=== PATIENT | male | born 1935 | race Caucasian/White ===

== ENCOUNTER 2019-06-30 20:43 | Inpatient (IN) ==
--- NOTE | 2019-06-30 21:31 | Diag Imaging Result Doc PS360 ---
EXAM: HIP W/PELVIS BILAT 2 VIEWS HISTORY: Fall TECHNIQUE: Five views COMPARISON: None. FINDINGS: There is a right femoral neck fracture. Femoral head remains in the acetabulum. The femoral shaft is rotated and superiorly placed. No fracture to the left hip. IMPRESSION: Right femoral neck fracture. Electronically signed by Martin Jauregui 06/30/2019 9:29 PM
[2019-06-30] MEDS ORDERED: MORPHINE IV ONE (21:52)
--- NOTE | 2019-06-30 22:05 | PROVIDER DOCUMENTATION ---
HPI-General Adult - General Chief Complaint: Hip Injury Stated Complaint: POSSIBLE FRACTURED RT HIP Time Seen by Provider: 06/30/19 21:05 Source: patient, family Allergies/Adverse Reactions: Patient Allergies Allergy/AdvReac Type Severity Reaction Status Date / Time No Known Allergies Allergy Verified 06/30/19 21:47 Home Medications: Home Medication List Medication Instructions Recorded Confirmed Last Taken Type Metformin [Glucophage] 500 mg PO TID 06/30/19 06/30/19 Unknown History Metoprolol [Lopressor] 25 mg PO BID 06/30/19 06/30/19 Unknown History Olmesartan/Hydrochlorothiazide 1 tab PO DAILY 06/30/19 06/30/19 Unknown History [Olmesartan-Hctz 20-12.5 mg Tab] Simvastatin 20 mg PO DAILY 06/30/19 06/30/19 Unknown History - History of Present Illness -Gen Adult Nature of Presenting Problems: 83yo male presents with CC of fall with injury to the right hip. The pt. reports that he was playing basketball and fell on his hip. The patient denies head injury or LOC. The patient reports that he did not have chest pain or dizziness associated with his fall. Location of Pain/Injury: reports: other (hip) Severity: reports: moderate Onset/Duration: reports: this evening Timing: reports: still present Context/Activities at Onset: reports: other (fall while playing basketball) Associated Symptoms: denies: chest pain, dizziness, shortness of breath, syncope Review of Systems - Adult - REVIEW OF SYSTEMS - ADULT Constitutional: reports: no symptoms reported Eyes: reports: no symptoms reported. denies: eye pain Ears, Nose, Mouth & Throat: reports: no symptoms reported. denies: throat pain Cardiovascular: reports: no symptoms reported. denies: chest pain Respiratory: reports: no symptoms reported. denies: shortness of breath Gastrointestinal: reports: no symptoms reported. denies: abdominal pain Genitourinary: reports: no symptoms reported. denies: flank pain Musculoskeletal: reports: joint pain (right hip) Integumentary: reports: no symptoms reported Neurological: reports: no symptoms reported. denies: dizziness/vertigo, syncope Psychiatric: reports: no symptoms reported. denies: alcohol/drug dependence Endocrine: reports: no symptoms reported Hematologic/Lymphatic: reports: no symptoms reported Allergic/Immunologic: reports: no symptoms reported Past History - Adult - PAST MEDICAL HISTORY-ADULT Review of Records: reports: Old Records Reviewed Major Childhood Illnesses: reports: denies history Cardiovascular: reports: denies history Respiratory: reports: denies history Gastrointestinal: reports: denies history Obstetrical/Gynecological: reports: denies history Genitourinary: reports: denies history Musculoskeletal: reports: denies history Neurological: reports: denies history Endocrine/Immune: reports: denies history Other Conditions: reports: denies history - PRIOR SURGERIES/PROCEDURES Surgical/Procedure History: reports: none - IMMUNIZATION STATUS Childhood Immunizations: See Nurse Assessment Flu Vaccine: See Nurse Assessment - FAMILY HISTORY Family History: reviewed, not pertinent Physical Exam-General - PHYSICAL EXAM-ADULT Initial Vital Signs Reviewed: Yes - CONSTITUTIONAL General Appearance: appears well, alert, no apparent distress - EYES Eyes: negative: conjuctival exudate, scleral icterus - HEAD, EARS, NOSE, MOUTH & THROAT HENMT: normocephalic/atraumatic, moist mucous membranes, pharynx normal - NECK Neck: non-tender, supple - RESPIRATORY Respiratory: normal breath sounds, no respiratory distress - CARDIOVASCULAR Cardiovascular: no edema, tachycardia - GASTROINTESTINAL (ABDOMEN) Abdominal Exam: soft, distended. negative: tenderness - MUSCULOSKELETAL Extremity: other (tenderness of the right hip, no open wound or blood noted) Peripheral Pulses: dorsalis-pedis (R): 2+ - SKIN Integumentary: normal color, warm/dry - NEUROLOGIC Neurologic: grossly normal - PSYCHIATRIC Psych/Mental Status: normal mood/affect, normal thought content, normal thought process Progress - PLAN OF CARE/RESULTS Progress/Plan/Lab Results: Vital Signs - 8 hr 06/30/19 21:14 Temperature 98.1 F Pulse Rate 101 H Respiratory Rate 18 Blood Pressure 185/99 O2 Sat by Pulse Oximetry 98 Orders Category Date Time Status HIP W/PELVIS BILAT 2 VIEWS [RAD] Stat Exams 06/30/19 21:07 Completed Morphine Med 06/30/19 21:52 Discontinued 4 mg IV NOW ONE Result Diagrams: 06/30/19 22:22 06/30/19 22:22 - REASSESSMENT Reassessment #1 Status: other (Discussed case with the orthopedic team who recomended admission to the hospitalist group. Discussed with hospitalist group who has accepted the patient. Notified both hospitalist and ortho team that the pt is Jehovahs witness and denies any blood transfusion.) Departure - Departure Date of Disposition Decision: 06/30/19 Time of Disposition Decision: 22:54 DIAGNOSIS: Closed right hip fracture Qualifiers: Encounter type: initial encounter Qualified Code(s): S72.001A - Fracture of unspecified part of neck of right femur, initial encounter for closed fracture Disposition: ADMITTED INPATIENT 09 Certified Medical Emergency: Emergent Condition: Fair - Critical Care Note This patient required my direct & personal management of CC.: No Attestation - Physician/ DARIAN Attestation Patient care was provided by Advanced Practice Provider:: No The physician spent face to face time with patient:: Yes Advanced Practice Provider documentation review:: Supervising physician onsite and consulted in the evaluation and care of this patient. The physician did have a face to face encounter with the patient.
[2019-06-30 22:55] LABS: BASO# 0.01 X1000 (0.0-0.2); BASO% 0.1 % (0.0-0.8); EOS# 0.11 X1000 (0.0-0.7); EOS% 1.2 % (0.0-10.0); HEMATOCRIT 41.4 % (42.0-52.0); HEMOGLOBIN 13.2 g/dL (14.0-18.0); LYMPH# 1.11 X1000 (1.2-3.4); LYMPH% 11.9 % (20.5-51.1); MCH 28.1 PG (27-31); MCHC 31.9 g/dL (33-37); MCV 88.1 FL (81-99); MONO% 5.4 % (1.7-9.3); MPV 10.4 FL (7.4-10.4); NEUT# 7.59 X1000 (1.4-6.5); NEUT% 81.4 % (42.2-75.2); PLT 168 X1000 (130-400); RDW 14.3 % (11.5-14.5); WBC 9.32 X1000 (4.8-10.8)
[2019-06-30 23:06] LABS: ALB/GLOB RATIO 1.5; CALCIUM 9.2 mg/dL (8.8-10.2); CREATININE 1.3 mg/dL (0.7-1.2); POTASSIUM 4.8 mmol/L (3.5-5.1); TOTAL BILIRUBIN 0.4 mg/dL (0.20-1.00); TOTAL PROTEIN 6.6 g/dL (6.3-8.3)
[2019-07-01] MEDS ORDERED: ZOFRAN IV PRN (00:06)
--- NOTE | 2019-07-01 00:24 | HISTORY AND PHYSICAL ---
PRIMARY CARE PHYSICIAN: Dr. Ania Armenta. CHIEF COMPLAINT: Fall, right hip pain. HISTORY OF PRESENTING ILLNESS: An 83-year-old male with history of hypertension, diabetes mellitus type 2, hyperlipidemia, who presented to emergency department after he fell while playing basketball. The patient states that he landed on his right hip region, developed moderate amount of pain and subsequently had come to the emergency department. In the ED, he was evaluated, he had imaging done which did show a right femoral neck fracture. His case was discussed with Orthopedics, who recommended admission for further management. At the time of my examination, patient denied any headache, fever, chills, chest pain, shortness of breath, hemoptysis, melena, weight changes, but complained of right hip region pain. PAST MEDICAL HISTORY: Includes hypertension, diabetes mellitus type 2, hyperlipidemia. PAST SURGICAL HISTORY: Bilateral knee replacement. ALLERGIES: No known drug allergies. CURRENT MEDICATIONS: Include metformin 500 mg p.o. t.i.d., metoprolol 25 mg p.o. b.i.d., olmesartan HCT 20/12.5 one p.o. daily, simvastatin 20 mg p.o. daily. SOCIAL HISTORY: No history of smoking, alcohol or illicit drug use. FAMILY HISTORY: Positive for coronary disease in mother. REVIEW OF SYSTEMS: Fourteen point review of systems is as in HPI. Other systems negative. PHYSICAL EXAMINATION: GENERAL: Cooperative, friendly male. He is resting more comfortably now. VITAL SIGNS: Temperature 98.1 degrees, pulse 101, respiration 18, blood pressure 185/99. HEENT: Extraocular movements intact. PERRLA. NECK: No masses. CHEST: Clear to auscultation. CARDIOVASCULAR: Regular rhythm. ABDOMEN: Soft, positive bowel sounds. EXTREMITY: Right hip region tenderness. NEUROLOGIC: He is awake, alert, oriented x3. GENITOURINARY: No bladder distention. SKIN: Warm. LABORATORIES AND STUDIES: WBC 9.32, hemoglobin 13.2, hematocrit 41.4, platelets 168,000. Sodium 138, potassium 4.8, chloride 100, CO2 is 26, BUN is 22, creatinine is 1.3. Glucose 210. Hip and pelvic x-ray shows a right femoral neck fracture. ASSESSMENT: An 83-year-old male with a history of hypertension, diabetes mellitus type 2 and hyperlipidemia, who was playing basketball and somehow he fell. He developed moderate amount of pain in his right hip region. He was brought to the emergency department. He had imaging done which did show a right femoral neck fracture. Subsequently, he will require admission for further management. ASSESSMENT: 1. Status post mechanical fall. 2. Right femoral neck fracture. 3. Hypertension. 4. Diabetes mellitus type 2. 5. Hyperlipidemia. PLAN: 1. We will admit patient to medical floor with telemetry. 2. We will keep patient NPO, give medical pain control and gentle hydration. 3. We will consult Orthopedics. 4. Monitor blood pressure closely. 5. Monitor blood glucose. Put patient on sliding scale insulin regimen. 6. We will put patient on DVT prophylaxis after surgery. 7. We will continue to follow and reassess, make further recommendation based on patient's clinical course. cc: MD Ania Jackson MD
[2019-07-01] MEDS: MORPHINE IV PRN ×2 (03:43→10:31)
[2019-07-01] MEDS: LOPRESSOR PO SCH ×3 (04:20→22:07)
[2019-07-01] MEDS: TYLENOL PO PRN ×2 (04:21→10:32)
--- NOTE | 2019-07-01 04:41 | EKG Report ---
Test Performed on : 07/01/2019 03:01:10 AM Test Reason : CP Blood Pressure : / mmHG Vent. Rate : 129 BPM Atrial Rate : 138 BPM P-R Int : 000 ms QRS Dur : 118 ms QT Int : 334 ms P-R-T Axes : 000 -29 073 degrees QTc Int : 489 ms Atrial fibrillation. with rapid ventricular response. Nonspecific intraventricular conduction delay Abnormal ECG No previous ECGs available Confirmed by Love Hernandez MD ([id number]) on 07/03/2019 7:39:39 AM
[2019-07-01] MEDS: HUMULIN R SUBQ SCH ×4 (07:45→21:50)
--- NOTE | 2019-07-01 07:47 | Diag Imaging Result Doc PS360 ---
EXAM: CHEST-1 VIEW 06/30/2019 HISTORY: Fall with fracture TECHNIQUE: AP portable at 1018 COMMENT: The inspiration is less optimal than on 05/02/2019. Otherwise are has been no significant change. IMPRESSION: Poor inspiration. Electronically signed by Johnny Kamara 07/01/2019 7:44 AM
[2019-07-01 08:07] LABS: EOS# 0.06 X1000 (0.0-0.7); EOS% 0.5 % (0.0-10.0); HEMATOCRIT 38.9 % (42.0-52.0); HEMOGLOBIN 12.3 g/dL (14.0-18.0); IMM GRAN# 0.02 X1000 (0.0-0.04); IMM GRAN% 0.2 % (0.0-0.5); LYMPH# 0.73 X1000 (1.2-3.4); LYMPH% 6.3 % (20.5-51.1); MCH 27.9 PG (27-31); MCHC 31.6 g/dL (33-37); MCV 88.2 FL (81-99); MONO# 0.66 X1000 (0.11-0.59); MONO% 5.7 % (1.7-9.3); MPV 10.7 FL (7.4-10.4); NEUT# 10.13 X1000 (1.4-6.5); NEUT% 87.3 % (42.2-75.2); PLT 152 X1000 (130-400); RBC 4.41 XMIL (4.7-6.1); RDW 14.4 % (11.5-14.5)
[2019-07-01 08:28] LABS: CALCIUM 8.6 mg/dL (8.8-10.2); CREATININE 1.3 mg/dL (0.7-1.2); POTASSIUM 4.6 mmol/L (3.5-5.1)
[2019-07-01 09:26] LABS: BANDS 10 % (0-1); LYMPHS 8 % (21-51); MONO 2 % (1-9); SEGS 80 % (42-75)
--- NOTE | 2019-07-01 10:31 | ORTHOPAEDICS CONSULTATION ---
DATE: 07/01/2019 HISTORY OF PRESENT ILLNESS: Mr. Solis is seen status post a fall with a right hip fracture. He is admitted by the hospitalist. He reports he was playing basketball when he slipped, tripped, and fell, landing on the right hip. He was unable to ambulate. He was admitted by the hospitalist, and found to have a right hip fracture. Presently, he complains of pain and tenderness over the right hip only. PAST MEDICAL HISTORY: Significant for hypertension, diabetes, and hyperlipidemia. PAST SURGICAL HISTORY: Status post bilateral knee replacement in the past. ALLERGIES: He has no known allergies. MEDICATIONS: Regular medicines include metformin, metoprolol, olmesartan, and simvastatin. SOCIAL HISTORY: He does not smoke or drink. He is a community ambulator. Resides in the area. He has a present. REVIEW OF SYSTEMS: Unremarkable for any chest pain, shortness of breath, syncopal spells, upper extremity pain, neck or back pain, or right lower extremity pain. Also negative for any left lower extremity pain. PHYSICAL EXAMINATION: Examination reveals tenderness over the right hip on passive motion. He is nontender about the right knee and ankle. Left lower extremity and both upper extremities are atraumatic and motor and sensory intact. He is nontender over the cervical, thoracic, lumbar spine. IMAGING: X-rays reviewed show a displaced right femoral neck fracture. ASSESSMENT: Displaced right femoral neck fracture. PLAN: The patient will be admitted for medical clearance. He has elevated blood sugar, as well as an elevated temperature and white count currently. Pending medical clearance today, will consider either hemiarthroplasty of the hip or total hip replacement. This will likely be tomorrow. I have discussed this with the family. We have discussed the risks of surgery, such as bleeding, infection, damage to tendon, nerve, or blood vessel, leg length discrepancy, failure of the implant, and other imponderables, and they are willing to proceed. cc: Tk Rodriguez MD
[2019-07-01] MEDS ORDERED: NORCO-5 PO PRN (14:40)
[2019-07-01] MEDS ORDERED: MORPHINE IV PRN (14:41)
[2019-07-01] MEDS ORDERED: LR 2,000 ML IV SCH (14:45)
[2019-07-01] MEDS ORDERED: LANTUS INSULIN SUBQ ONE (15:00)
[2019-07-01] MEDS ORDERED: MILK OF MAGNESIA PO ONE (15:45)
[2019-07-01] MEDS ORDERED: LOVENOX SUBQ SCH (16:00)
--- NOTE | 2019-07-01 17:28 | EKG Report ---
Test Performed on : 07/01/2019 4:42:40 PM Test Reason : Follow up heart rhythm Blood Pressure : / mmHG Vent. Rate : 092 BPM Atrial Rate : 092 BPM P-R Int : 186 ms QRS Dur : 122 ms QT Int : 364 ms P-R-T Axes : 078 -22 058 degrees QTc Int : 450 ms Sinus rhythm. with marked sinus arrhythmia. Nonspecific intraventricular conduction delay Borderline ECG When compared with ECG of 01-JUL-2019 03:01, (Unconfirmed) Sinus rhythm. has replaced Atrial fibrillation. Confirmed by Love Hernandez MD ([id number]) on 07/03/2019 7:40:17 AM
--- NOTE | 2019-07-01 17:28 | PROGRESS NOTE ---
DATE: 07/01/2019 INTERVAL HISTORY: No acute events overnight. He did develop fever of 102.5 and had leukocytosis of 11,000. His pulse had been increasing from 101 to 121. He was saturating 93% on room air. He had hyperglycemia as well. SUBJECTIVE: Mr. Solis is feeling good. Denies any chest pain, shortness of breath or cough. He denies any nausea, vomiting, abdominal pain. He denies any burning while micturition. VITALS: Temperature currently 98.7 degrees, pulse 101, respiratory 20, blood pressure 137/77, he is saturating 93% on room air. PHYSICAL EXAMINATION: He is not in acute distress. Oral cavity is moist. Air entry bilaterally equal. No wheeze or rhonchi, mild crackles infrascapular region. S1, S2 normal irregularly irregular. No murmur, rub, or gallop. Abdomen is soft, nontender. His right lower extremity is externally rotated. He is not in excruciating pain. He is able to wiggle his toes and perform flexion-extension of the feet. He is alert and oriented x3. His is at bedside. LABS: Suggestive of WBC of 11.6, hemoglobin of 12.3, platelet of 152,000. His BUN is 25, creatinine 1.3. He does have hyperglycemia with glucose of 361. Microbiology influenza screen was negative. Blood cultures are in lab. No new imaging. Chest x-ray previously had poor inspiration. ASSESSMENT AND PLAN: 1. Status post mechanical fall leading to right-sided femoral neck fracture. Continue intravenous morphine and oral [place] as needed for pain control. Considering patient is Jehovah's Witnesses I will avoid preoperative anticoagulation for deep venous thrombosis prophylaxis though I will consider starting postoperative DVT prophylaxis once cleared by orthopedic team. His revised cardiac risk index for preoperative risk is only 1. I will monitor him postoperatively. I will also order proBNP. There is no further preoperative workup needed before proceeding with right-sided hip joint surgery pending sepsis workup. 2. Fever and tachycardia and leukocytosis. Sepsis Needs to be ruled out. His Chest Xray did not have pneumonia. I will order urinalysis and based on that I will consider starting him on intravenous antibiotics. Blood culture and urine culture have been ordered. 3. Suspected Atrial fibrillation with rapid ventricular response. He denies known history of atrial fibrillation. His initial EKG could have normal sinus rhythm with premature atrial contraction. I will repeat an EKG now. Based on that I will consider starting him on rate control medication, for now I will keep him on his home metoprolol. 4. History of insulin-dependent diabetes mellitus with hyperglycemia. Start patient on long- acting insulin with sliding scale insulin. He was taking baby aspirin at home which I will continue him on. 5. Constipation. I will give him stool softeners. DISPOSITION: Continue monitor patient on the floor. Plan of care discussed with the patient and his questions have been answered. cc: Ivan Summers MD MTDD
[2019-07-01] MEDS ORDERED: PREVNAR 13 IM ONE (18:04)
[2019-07-01 18:08] LABS: URINE SOURCE CATH
[2019-07-01 18:10] LABS: BILIRUBIN URINE NEGATIVE (NEGATIVE); BLOOD URINE NEGATIVE (NEGATIVE); COLOR YELLOW; GLUCOSE URINE 100 mg/dL (NEGATIVE); KETONE URINE TRACE mg/dL (NEGATIVE); LEUKOCYTES URINE NEGATIVE (NEGATIVE); NITRITE URINE NEGATIVE (NEGATIVE); PROTEIN URINE 30 mg/dL (NEGATIVE); SP GRAVITY URINE 1.025; TURBIDITY URINE CLEAR (CLEAR); UROBILINOGEN URINE NORMAL (NORMAL)
[2019-07-01 18:11] LABS: UR EPITHELIAL CELLS <10 /HPF (<10); URINE BACTERIA NEGATIVE /HPF; URINE RBC <10 /HPF (<10); URINE WBC <10 /HPF (<10)
[2019-07-02] MEDS: HUMULIN R SUBQ SCH ×4 (07:00→20:55)
--- NOTE | 2019-07-02 07:12 | EKG Report ---
Test Performed on : 07/02/2019 06:42:18 AM Test Reason : Follow up Heart rhythm Blood Pressure : / mmHG Vent. Rate : 105 BPM Atrial Rate : 105 BPM P-R Int : 184 ms QRS Dur : 122 ms QT Int : 348 ms P-R-T Axes : 057 -28 048 degrees QTc Int : 459 ms Sinus tachycardia. with occasional premature ventricular complexes. Nonspecific intraventricular conduction delay Borderline ECG When compared with ECG of 01-JUL-2019 16:42, (Unconfirmed) premature ventricular complexes. are now present Confirmed by Love Hernandez MD ([id number]) on 07/03/2019 7:40:34 AM
--- NOTE | 2019-07-02 07:20 | ORTHOPAEDICS PROGRESS NOTE ---
DATE: 07/02/2019 Mr. Solis is seen for his hip fracture. He currently is better in terms of his blood glucose. He did have an elevated temperature, with an elevated white count yesterday of 11.6. He is under a rule out sepsis protocol currently with pending blood cultures. So far, these are negative. We have discussed postponing the hip replacement until tomorrow, until there is no evidence of infection. I would not proceed with the surgery today while he is under rule out infectious protocol. If he is afebrile for 24 hours and the white count is normal, we will plan on proceeding with a total hip replacement tomorrow. Risks and benefits were discussed, including risk of anesthesia, infection, damage to tendon, nerve, or blood vessel, blood clots, or other imponderables. Will place him in pneumatic stockings to prevent blood clots today, pending surgery tomorrow. cc: Tk Rodriguez MD
[2019-07-02 07:53] LABS: HEMATOCRIT 38.5 % (42.0-52.0); HEMOGLOBIN 12.1 g/dL (14.0-18.0); MCH 27.7 PG (27-31); MCHC 31.4 g/dL (33-37); MCV 88.1 FL (81-99); MPV 10.3 FL (7.4-10.4); NEUT% 74.6 % (42.2-75.2); PLT 114 X1000 (130-400); RBC 4.37 XMIL (4.7-6.1); RDW 14.5 % (11.5-14.5); WBC 7.82 X1000 (4.8-10.8)
[2019-07-02 07:54] LABS: BASO# 0.01 X1000 (0.0-0.2); BASO% 0.1 % (0.0-0.8); EOS# 0.35 X1000 (0.0-0.7); EOS% 4.5 % (0.0-10.0); LYMPH# 1.11 X1000 (1.2-3.4); LYMPH% 14.2 % (20.5-51.1); MONO# 0.52 X1000 (0.11-0.59); MONO% 6.6 % (1.7-9.3); NEUT# 5.83 X1000 (1.4-6.5)
[2019-07-02] MEDS: MORPHINE IV PRN ×3 (08:10→23:15)
[2019-07-02] MEDS: ZOCOR PO SCH (08:14)
[2019-07-02] MEDS: LOPRESSOR PO SCH ×2 (08:14→20:56)
[2019-07-02 08:35] LABS: HEMOGLOBIN A1C 7.6 % (4.8-6.0)
[2019-07-02 08:39] LABS: CALCIUM 8.3 mg/dL (8.8-10.2); CREATININE 1.3 mg/dL (0.7-1.2)
--- NOTE | 2019-07-02 12:16 | PROGRESS NOTE ---
DATE: 07/02/2019 INTERVAL HISTORY: No acute events overnight. The patient has not had any more fever episodes. SUBJECTIVE: Mr. Solis is denying any chest pain, shortness of breath, or cough. He denies any nausea, vomiting, abdominal pain. He is denying any burning while passing urine. Family is at bedside. OBJECTIVE: Vital Signs: Temperature 98.7 degrees, pulse 70, respiratory rate 16, blood pressure 146/75. He is saturating 95% on room air. General: On physical examination, obese, not in acute distress. HEENT: Oral cavity is moist. Lungs: Air entry bilaterally equal. No wheeze, rhonchi, or crackles. Cardiovascular: S1 and S2 normal. Irregularly irregular. No murmur, rub, or gallop. Abdomen: Obese, soft, nontender. Extremities: No lower extremity edema. He is able to wiggle both of his toes. Neurologic: He is alert and oriented x3. LABORATORY DATA: Suggestive of WBC of 7000, hemoglobin 12.1, platelet 114,000. He does have BUN of 24, creatinine of 1.3, and I discussed with the family about following up outpatient for workup of chronic kidney dysfunction and better diabetes management. MICROBIOLOGY: Blood cultures are in lab, so far no growth. ASSESSMENT AND PLAN: 1. Status post mechanical fall leading to right femoral neck fracture. Continue intravenous morphine and [place] with increased frequency for pain. The patient is a Confucianism and would like to avoid all the blood products. He would need deep vein thrombosis prophylaxis once cleared by orthopedic team. His revised cardiac risk index (RCRI) for preoperative risk assessment is 1. Considering elevated proBNP, he would need postsurgery telemetry monitoring. 2. Fever, tachycardia, and leukocytosis with presumed sepsis. His chest x-ray was clear. Urinalysis was unremarkable. Blood culture has not shown any growth so far. His sepsis has almost been ruled out until the blood culture grows anything. He has not had any more of these episodes of fever and his WBC count has become normal. I will avoid intravenous antibiotics at the moment. 3. Irregularly irregular heartbeat. Though the initial EKG suggested atrial fibrillation, it looks more like sinus arrhythmia with premature atrial contraction. Repeat EKG. Currently his heart rate is within acceptable range. I will continue his home metoprolol for essential hypertension. 4. History of [id number] diabetes mellitus with hyperglycemia. Continue glargine with sliding scale insulin, as well as home aspirin. 5. Constipation. He has not had any bowel movement. I will keep him on bisacodyl suppositories. DISPOSITION: The patient is awaiting orthopedic surgery, likely on 07/03/2019. Plan of care was discussed with the patient. All of his questions have been answered. cc: Ivan Summers MD
[2019-07-02] MEDS: NORCO-5 PO PRN (12:45)
[2019-07-02] MEDS: DULCOLAX PR SCH ×2 (12:51→20:59)
[2019-07-02] MEDS: TYLENOL PO PRN (16:28)
--- NOTE | 2019-07-02 16:57 | ECHO REPORT ---
ORDER DATE: 07/01/2019 INTERPRETING PHYSICIAN: Dr. Clint Cortés. A 2D echocardiogram. Technically suboptimal study. Very poor acoustic window. ECHOCARDIOGRAPHIC MEASUREMENTS: 1. Interventricular septum: 0.8 cm. 2. Left ventricular posterior wall: 0.8 cm. 3. Diastolic diameter: 3.7 cm. 4. Left atrium could not be well measured. SUMMARY OF THE 2-DIMENSIONAL IMAGIN. Aortic valve leaflets are sclerosed, trileaflet. 2. Pulmonic valve not well visualized. 3. Tricuspid valve was normal. 4. Peak velocity across the tricuspid valve was 2.7 meters per second. 5. Pulmonary artery systolic pressure of 40 mmHg. 6. There is mild tricuspid regurgitation. 7. Peak velocity across the aortic valve was less than 2 meters per second. 8. Cannot comment further on the aortic valve as it was a technically suboptimal study. 9. Optison was used to evaluate left ventricular systolic function. 10. Atrial fibrillation was noted. 11. Normal left ventricular cavity size. 12. Concentric left ventricular hypertrophy. 13. Estimated ejection fraction of 65%. 14. There is no pericardial effusion. cc: MD Ivan Stephens MD
[2019-07-02] MEDS: LANTUS INSULIN SUBQ SCH (20:56)
[2019-07-03] MEDS: HUMULIN R SUBQ SCH ×4 (07:21→22:30)
--- NOTE | 2019-07-03 07:39 | EKG Report ---
Test Performed on : 07/03/2019 07:24:45 AM Test Reason : afib Blood Pressure : / mmHG Vent. Rate : 104 BPM Atrial Rate : 104 BPM P-R Int : 180 ms QRS Dur : 124 ms QT Int : 360 ms P-R-T Axes : 082 -22 054 degrees QTc Int : 473 ms Sinus tachycardia. with premature atrial complexes. Nonspecific intraventricular conduction delay Borderline ECG When compared with ECG of 02-JUL-2019 06:42, (Unconfirmed) premature ventricular complexes. are no longer present premature atrial complexes. are now present Confirmed by Love Hernandez MD ([id number]) on 07/04/2019 1:00:24 PM
[2019-07-03 08:01] LABS: BASO# 0.01 X1000 (0.0-0.2); BASO% 0.1 % (0.0-0.8); EOS# 0.12 X1000 (0.0-0.7); EOS% 1.5 % (0.0-10.0); HEMATOCRIT 37.2 % (42.0-52.0); HEMOGLOBIN 11.9 g/dL (14.0-18.0); LYMPH# 1.03 X1000 (1.2-3.4); LYMPH% 12.6 % (20.5-51.1); MCH 28.1 PG (27-31); MCV 87.9 FL (81-99); MONO% 8.5 % (1.7-9.3); MPV 10.7 FL (7.4-10.4); NEUT# 6.34 X1000 (1.4-6.5); NEUT% 77.3 % (42.2-75.2); PLT 113 X1000 (130-400); RBC 4.23 XMIL (4.7-6.1); RDW 14.1 % (11.5-14.5)
[2019-07-03] MEDS: DULCOLAX PR SCH (08:16)
[2019-07-03] MEDS: ZOCOR PO SCH (08:16)
[2019-07-03] MEDS ORDERED: DIPRIVAN 1% ONE (08:16)
[2019-07-03] MEDS ORDERED: EPHEDRINE ONE (08:17)
[2019-07-03] MEDS ORDERED: FENTANYL ONE (08:17)
[2019-07-03] MEDS ORDERED: VERSED ONE (08:17)
[2019-07-03] MEDS ORDERED: SODIUM CHLORIDE 0.9% 10 ML ONE ×2 (08:17→08:22)
[2019-07-03] MEDS: LOPRESSOR PO SCH ×2 (08:21→20:22)
[2019-07-03 08:38] LABS: CALCIUM 8.6 mg/dL (8.8-10.2); CREATININE 1.2 mg/dL (0.7-1.2)
[2019-07-03] MEDS ORDERED: MARCAINE 0.25% PF ONE (08:46)
[2019-07-03] MEDS ORDERED: DURAMORPH ONE (08:46)
[2019-07-03] MEDS ORDERED: SODIUM CHLORIDE 0.9% ONE (08:46)
[2019-07-03] MEDS ORDERED: TORADOL ONE (08:46)
[2019-07-03] MEDS ORDERED: CYKLOKAPRON 1,000 MG/NS 1,000 MG/100 ML IVPB ONE (08:46)
[2019-07-03] MEDS ORDERED: EXPAREL 1.3% ONE (08:47)
[2019-07-03] MEDS ORDERED: NEOSPORIN G.U. IRRIGANT ONE (08:47)
[2019-07-03] MEDS ORDERED: KEFZOL 1 GM/D5W 2 GM/100 ML IVPB ONE (08:56)
--- NOTE | 2019-07-03 09:49 | ORTHOPAEDICS PROGRESS NOTE ---
DATE: 07/03/2019 SUBJECTIVE: Mr. Solis is ready for surgery today. OBJECTIVE: His white count is normal. There have been no further temperature spikes. Blood cultures show no evidence of sepsis after 48 hours. PLAN: I have discussed that I do believe it is safe to proceed with surgery, as safe as possible. We will plan on proceeding with a right total hip replacement today. cc: Tk Rodriguez MD
[2019-07-03 10:47] LABS: URINE SOURCE CATH
[2019-07-03 11:11] LABS: BILIRUBIN URINE NEGATIVE (NEGATIVE); BLOOD URINE TRACE (NEGATIVE); COLOR YELLOW; GLUCOSE URINE 70 mg/dL (NEGATIVE); KETONE URINE NEGATIVE (NEGATIVE); LEUKOCYTES URINE SMALL (NEGATIVE); NITRITE URINE NEGATIVE (NEGATIVE); PH URINE 7.5; PROTEIN URINE 30 mg/dL (NEGATIVE); SP GRAVITY URINE 1.021; TURBIDITY URINE HAZY (CLEAR); UROBILINOGEN URINE NORMAL (NORMAL)
[2019-07-03 11:13] LABS: UR EPITHELIAL CELLS <10 /HPF (<10); URINE BACTERIA 3+ /HPF; URINE RBC <10 /HPF (<10)
[2019-07-03] MEDS ORDERED: NS 1,000 ML ONE (12:12)
--- NOTE | 2019-07-03 12:17 | OPERATIVE NOTE ---
PROCEDURE DATE: 07/03/2019 PREOPERATIVE DIAGNOSIS: Displaced femoral neck fracture, right hip. POSTOPERATIVE DIAGNOSIS: Displaced femoral neck fracture, right hip. PROCEDURE PERFORMED: Right anterior total hip replacement. SURGEON: Binh Rodriguez M.D. DAY CARE DIRECTOR: HOME Lal. Mr. Julien was necessary for proper retraction and manipulation during the case. ANESTHESIA: Spinal with sedation. COMPLICATIONS: None. PROCEDURE IN DETAIL: An 83-year-old male presents for a right total hip replacement after a displaced femoral neck fracture. Risks, benefits, and no guarantees were discussed, and he is willing to proceed. He was taken to the operating room, and satisfactory anesthesia obtained. Right hip was prepped and draped in the usual sterile fashion. A time-out was taken to confirm operative site, procedure, and patient. He was on the [place] table, and an anterior approach undertaken to the right hip after prep and drape and time-out. An incision was started 1 cm lateral and distal to the anterior superior iliac spine, and curved over the anterior tensor fascia for roughly 10 to 12 cm. Dissection was carried down through the skin to the deep fascia of the tensor, which was split in line with the incision. Blunt dissection along the inner membrane of the tensor was undertaken down the anterior hip capsule. Cobra retractors were placed over the superior and inferior aspect of the femoral neck, and a capsulotomy incision made. The femoral neck fracture was identified. A clean osteotomy cut was made roughly 8 mm above the lesser trochanter, and the femoral head removed. A small Cobra retractor was carefully placed directly on the anterior acetabular bone with care taken to avoid any injury to the anterior neurovascular structures. Reaming of the acetabulum was undertaken up to a 59 reamer. A IQcarduy Fred Gription 60 mm outer diameter cup was then impacted in the acetabulum under fluoroscopic guidance in roughly 45 degrees of abduction and 10 to 15 degrees of anteversion. This had secure press-fit fixation. A 25 length screw was placed in the 12 o'clock position of the cup for additional fixation, followed by a 0-degree 36 mm inner diameter polyethylene bearing. The bearing cup interface and cup bone interface was noted to be stable. All traction was released off the leg, and the [place] table utilized to extend the hip and externally rotate it to facilitate broaching of the proximal femur. Sequential broaching was undertaken up to a size 9 Actis stem. This had good axial and rotational stability. A standard neck with a 12 mm neck length restored the leg length and natural anatomy and offset of the hip. Good stability was achieved with this. The trial stem was removed, and a size 9 standard collar Actis stem impacted in the proximal femur with secure axial and rotational stability. A 36 mm ceramic head with a 12 mm neck length was impacted onto this, and the hip reduced. Final range of motion revealed no posterior or anterior instability by flexing the hip up and internally rotating it, as well as extending it to the floor with external rotation without any obvious instability. C-arm was used to verify accurate component position, as well as fixation of the hip. Confucianism of leg length was achieved. The wound was irrigated and closed after injecting the joint capsule and subcu with Exparel for pain management. A Hemovac drain was placed. The fascia of the tensor was closed with a running V- Loc, the subcu with 2-0 Vicryl, and the skin with skin andre. Sterile dressings were placed over this, and he was recovered from anesthesia and transferred to the recovery room in stable condition. No intraoperative complications were noted. Instrument count and sponge count were correct at the time of closure. cc: Tk Rodriguez MD
[2019-07-03] MEDS ORDERED: OXY IR ONE (12:32)
[2019-07-03] MEDS ORDERED: ZOFRAN IV PRN (13:15)
[2019-07-03] MEDS: NS 1,000 ML IV SCH (13:15)
[2019-07-03] MEDS ORDERED: ZOFRAN PO PRN (13:15)
[2019-07-03] MEDS ORDERED: OXY IR PO PRN ×2 (13:15)
[2019-07-03] MEDS ORDERED: MORPHINE IV PRN ×3 (13:15)
[2019-07-03] MEDS: ULTRAM PO SCH ×2 (14:46→20:21)
--- NOTE | 2019-07-03 15:13 | ORTHOPAEDICS PROGRESS NOTE ---
DATE: 07/03/2019 Mr. Solis is seen status post total hip replacement. He is awake and alert at the present time and comfortable. Vital signs are stable. There is no active bleeding. He has good femoral nerve and sciatic nerve function. He is comfortable at the present time. Will plan on mobilizing him tomorrow. cc: Tk Rodriguez MD
[2019-07-03] MEDS: KEFZOL 2 GM/D5W 2 GM/50 ML IVPB IV SCH (17:05)
[2019-07-03] MEDS: NORCO-5 PO PRN (17:10)
[2019-07-03] MEDS: TYLENOL PO SCH (17:11)
[2019-07-03] MEDS: COLACE PO SCH (20:20)
[2019-07-03] MEDS: PERIDEX MT SCH (20:20)
--- NOTE | 2019-07-03 20:48 | PROGRESS NOTE ---
DATE: 07/03/2019 SUBJECTIVE: The patient is resting comfortably in bed. No acute events noted overnight. OBJECTIVE: Vital Signs: Temperature 98 degrees, blood pressure 96/50, heart rate 116, respirations 20, O2 saturation 99% on 2 L nasal cannula. General: This is a chronically ill- appearing elderly male lying in bed in no acute distress. Heart: S1, S2 normal. Tachycardic. Lungs: Equal air entry bilaterally. No wheezing. No rales. Abdomen: Positive bowel sounds. Soft, nontender, nondistended. Extremities: No edema. No cyanosis. Neurologic: The patient is awake and alert. LABS: White blood cell count 8.2, hemoglobin 11, hematocrit 37, platelets 113,000. Sodium 135, potassium 4, BUN 21, creatinine 1.2, glucose 215. ASSESSMENT AND PLAN: 1. Status post right anterior total hip replacement status post femoral neck fracture. Management as per the orthopedic surgeon. 2. Postoperative hypotension. Hold lopressor. 3. Urinary tract infection. The urine culture is currently pending. The patient is currently receiving cefazolin. 4. Uncontrolled diabetes mellitus type 2. Continue on sliding scale insulin and Lantus. 5. Anemia. Stable. 6. Chronic kidney disease. Will monitor the urine output closely. No old lab work available for review. 7. Thrombocytopenia. Monitor closely. 8. Obesity. Aware. 9. Deep vein thrombosis prophylaxis. Continue with sequential compression devices. cc: Martina Senior MD MTDD
[2019-07-03] MEDS ORDERED: CELEBREX PO SCH (21:00)
[2019-07-03] MEDS: LANTUS INSULIN SUBQ SCH (22:29)
[2019-07-04] MEDS: NORCO-5 PO PRN ×4 (00:37→23:50)
[2019-07-04] MEDS: KEFZOL 2 GM/D5W 2 GM/50 ML IVPB IV SCH (00:39)
[2019-07-04] MEDS: DULCOLAX PR SCH ×3 (02:23→23:50)
[2019-07-04] MEDS: ULTRAM PO SCH (02:24)
[2019-07-04] MEDS: LOPRESSOR PO SCH (02:24)
[2019-07-04] MEDS: TYLENOL PO SCH ×4 (02:25→17:26)
[2019-07-04 07:06] LABS: EOS% 1.3 % (0.0-10.0); HEMATOCRIT 26.1 % (42.0-52.0); HEMOGLOBIN 8.4 g/dL (14.0-18.0); IMM GRAN# 0.02 X1000 (0.0-0.04); IMM GRAN% 0.3 % (0.0-0.5); LYMPH# 1.14 X1000 (1.2-3.4); LYMPH% 15.3 % (20.5-51.1); MCH 28.5 PG (27-31); MCHC 32.2 g/dL (33-37); MCV 88.5 FL (81-99); MONO# 0.84 X1000 (0.11-0.59); MONO% 11.3 % (1.7-9.3); MPV 10.9 FL (7.4-10.4); NEUT# 5.33 X1000 (1.4-6.5); NEUT% 71.8 % (42.2-75.2); PLT 94 X1000 (130-400); RBC 2.95 XMIL (4.7-6.1); WBC 7.43 X1000 (4.8-10.8)
[2019-07-04] MEDS ORDERED: NS 1,000 ML IV ONE (07:07)
[2019-07-04 07:47] LABS: CALCIUM 7.7 mg/dL (8.8-10.2); CREATININE 2.4 mg/dL (0.7-1.2); POTASSIUM 4.5 mmol/L (3.5-5.1)
[2019-07-04] MEDS: HUMULIN R SUBQ SCH ×4 (08:06→23:50)
[2019-07-04] MEDS ORDERED: ULTRAM PO PRN (09:32)
[2019-07-04] MEDS ORDERED: ROCEPHIN 1 GM in NS 50 ML IV SCH (09:45)
--- NOTE | 2019-07-04 10:13 | ORTHOPAEDICS PROGRESS NOTE ---
DATE: 07/04/2019 SUBJECTIVE DATA: Mr. Solis is seen postoperative day 1 of his displaced femoral neck fracture on the right side with right anterior total hip replacement. He reports he is somewhat sleepy today. He states his pain is 5/10. He does deny nausea or vomiting at this time. OBJECTIVE DATA: There is good sensation in the right lower extremity. There is no active bleeding. The bandages are clean and dry. The patient can flex his quadriceps muscles without difficulty. There are good pedal pulses. His current hemoglobin and hematocrit are 8.4 and 26.1. His current blood pressure is 93/54 with a pulse rate of 95. ASSESSMENT: Hypotension post right anterior total hip replacement due to femoral neck fracture. PLAN: We plan to give Mr. Solis a fluid bolus of normal saline. We will also place him on iron twice daily. He is Orthodox and does not take blood products. We will check back on him in the morning and make sure he is improving. Dictated by HOME Lal for Tk Rodriguez MD cc: HOME Lal MD
[2019-07-04] MEDS: ZOCOR PO SCH (10:54)
[2019-07-04] MEDS: COLACE PO SCH ×2 (10:54→23:49)
[2019-07-04] MEDS: ASPIRIN PO SCH (10:54)
[2019-07-04] MEDS: FERROUS SULFATE PO SCH ×2 (10:55→23:50)
[2019-07-04] MEDS: PEPCID PO SCH (10:56)
[2019-07-04] MEDS: PERIDEX MT SCH ×2 (10:59→23:52)
[2019-07-04] MEDS: NS 1,000 ML IV SCH ×2 (11:57→16:44)
--- NOTE | 2019-07-04 12:21 | Diag Imaging Result Doc PS360 ---
EXAM: US RENAL 2 (RETROPER) COMPLETE 07/04/2019 HISTORY: isabella/arf TECHNIQUE: Renal ultrasound COMMENT: The kidneys are without evidence of hydronephrosis or mass. The right kidney is 10.9 x 5 x 4.5 cm the left is 11.7 x 5.8 x 6.6 cm. The bladder is nondistended. There is a Whyte catheter. IMPRESSION: No evidence of obstructive uropathy. Electronically signed by Johnny Kamara 07/04/2019 12:19 PM
--- NOTE | 2019-07-04 13:37 | Diag Imaging Result Doc PS360 ---
EXAM: CHEST-1 VIEW 07/04/2019 HISTORY: dyspnea TECHNIQUE: AP portable upright at 1326 COMMENT: The inspiration is less optimal than on 06/30/2019. There is subsegmental atelectasis over both hemidiaphragms. There is a fairly large amount of colonic gas under the diaphragms. IMPRESSION: Bibasilar atelectasis. The possibility of colonic ileus cannot be excluded. Electronically signed by Johnny Kamara 07/04/2019 1:34 PM
[2019-07-04 15:46] LABS: UR CREAT RANDOM 297.2 mg/dL (14-26); UR PROT RANDOM 58.6 mg/dL
--- NOTE | 2019-07-04 20:04 | PROGRESS NOTE ---
DATE: 07/04/2019 SUBJECTIVE: The patient is resting comfortably in bed. He complains of pain in his right hip. He states that he is concerned because his blood pressure has been low. OBJECTIVE: Vital Signs: Temperature 98.1 degrees blood pressure 126/73, heart rate 113, respirations 22. O2 saturation 91% on 2 L nasal cannula. Intake 2 L, output 379. General: This is a chronically ill-appearing elderly male lying in bed in no acute distress. Heart: S1, S2 normal. Tachycardic. Lungs: Equal air entry bilaterally. No wheezing. No rales. No rhonchi. Abdomen: Positive bowel sounds. Soft, nontender, nondistended. Extremities: No edema, no cyanosis, no calf tenderness. Neurologic: The patient is alert and oriented x3. LABS: White blood cell count 7.4, hemoglobin 8.4, hematocrit 26, platelets 94,000. Sodium 134, potassium 4.5, chloride 98, CO2 25, BUN 38, creatinine 2.4, glucose 221. Chest x-ray shows bibasilar atelectasis and a possible colonic ileus. ASSESSMENT AND PLAN: 1. Status post right anterior total hip replacement status post femoral neck fracture. Management as per the orthopedic surgeon. 2. Urinary tract infection. The urine culture is growing gram-positive cocci. Continue with antibiotic therapy pending the culture results. 3. Acute kidney injury on chronic kidney disease. The patient has been hypotensive since yesterday after surgery and even this morning. We will discontinue the Lopressor. The patient's FENA is less than 1. We will continue with IV fluids and monitor the urine output closely. The renal ultrasound was noted to be unremarkable. We will consult with the terrazzo polisher for further recommendations. We will also discontinue the Celebrex. 4. Uncontrolled diabetes mellitus type 2. We will add Levemir during the day. Continue with sliding scale insulin. 5. Morbid obesity. Aware. 6. Anemia. We will continue to monitor hemoglobin closely. We will check iron studies. 7. Thrombocytopenia. The platelet count continues to drop. We will continue to monitor closely. We will likely consult with the ear mold laboratory technician if no improvement by tomorrow. 8. Hypotension. The patient's Lopressor is on hold at this time. cc: MD BETZY Lyles
[2019-07-04] MEDS ORDERED: INSULIN PEN NEEDLES ONE (23:33)
[2019-07-04] MEDS: LEVEMIR SUBQ SCH (23:51)
[2019-07-05] MEDS: TYLENOL PO SCH ×5 (02:09→22:24)
--- NOTE | 2019-07-05 03:49 | NEPHROLOGY CONSULTATION ---
DATE: 07/04/2019 REASON FOR CONSULTATION: Acute kidney injury. HISTORY OF PRESENT ILLNESS: Mr. Solis is an 83-year-old white male who is admitted to the hospital on 06/30/2019. He fell and suffered a right hip fracture. He had a baseline creatinine of 1.2 and we have no prior data. She takes olmesartan and hydrochlorothiazide at home. He was admitted to the hospital and taken to the operating room on 07/03/2019 for right anterior total hip replacement by Dr. Rodriguez. Review of the anesthesia record finds that he did have a transient episode of hypotension in the emergency room that were managed appropriately and his blood pressure was above 100 systolic before he left the operating room. He did not receive any overtly nephrotoxic medications. His angiotensin receptor rere has been appropriately withheld. In this context, his creatinine remained 1.1 to 1.2 until today, when his creatinine shashank to 2.4. Urine output has remained adequate throughout. He has been given IV fluids through the day on the evening of the 07/03 and again, on 07/04. PAST MEDICAL HISTORY: As above. HOME MEDICATIONS: Include olmesartan, hydrochlorothiazide, simvastatin, metformin, metoprolol. ALLERGIES: None. SOCIAL HISTORY: He is an active man, was apparently playing basketball when he suffered is injury. No alcohol or tobacco. FAMILY HISTORY: Noncontributory. REVIEW OF SYSTEMS: Noncontributory. PHYSICAL EXAMINATION: Vital Signs: Blood pressure 101/64, heart rate 110, respirations 20, afebrile. General: An elderly man, no acute distress. Skin: Warm and dry. Conjunctivae are pink. Pupils are equal. Neck: Neck veins are not distended. Trachea is midline. Heart: PMI nondisplaced. Regular rate and rhythm with mild tachycardia. Lungs: Have equal breath sounds. No crackles or wheezes. Abdomen: Soft, nontender. Bowel sounds present. No organomegaly, masses, bruits. Extremities: No edema, clubbing, or cyanosis. Neurologic: Nonfocal. IMPRESSION: Acute kidney injury. Intravascular volume depletion versus ischemic acute tubular necrosis secondary to hypotension. Low FENA. He is receiving IV fluids. We will check labs in the morning and re-evaluate. I have reviewed his medications and no changes are required. I will continue his normal saline as ordered. Antibiotics are dosed appropriately. cc: Gene Moncada MD
--- NOTE | 2019-07-05 07:32 | EKG Report ---
Test Performed on : 07/05/2019 07:01:30 AM Test Reason : tachycardia Blood Pressure : / mmHG Vent. Rate : 118 BPM Atrial Rate : 118 BPM P-R Int : 000 ms QRS Dur : 120 ms QT Int : 336 ms P-R-T Axes : 000 -11 072 degrees QTc Int : 470 ms Wide QRS rhythm. with premature supraventricular complexes. Nonspecific intraventricular conduction delay Borderline ECG When compared with ECG of 03-JUL-2019 07:24, Wide QRS rhythm. has replaced Sinus rhythm. Confirmed by Love Hernandez MD ([id number]) on 07/05/2019 6:47:56 PM
[2019-07-05] MEDS: HUMULIN R SUBQ SCH ×4 (07:51→22:47)
[2019-07-05] MEDS: NORCO-5 PO PRN ×3 (07:56→19:29)
[2019-07-05 08:46] LABS: HEMATOCRIT 24.1 % (42.0-52.0); HEMOGLOBIN 7.9 g/dL (14.0-18.0); MCHC 32.8 g/dL (33-37); MCV 88.6 FL (81-99); MPV 11.3 FL (7.4-10.4); RBC 2.72 XMIL (4.7-6.1); RDW 13.8 % (11.5-14.5); WBC 5.96 X1000 (4.8-10.8)
[2019-07-05 08:50] LABS: RETIC% 1.62 % (0.8-2.1); RETIC-HE 27.8 PG (28.2-36.6)
[2019-07-05] MEDS ORDERED: LEVEMIR SUBQ SCH (09:00)
[2019-07-05 09:03] LABS: IRON SATURATION 20 %; TIBC 152 ug/dL; TOTAL IRON 30 ug/dL (53-167); UNBOUND IRON 122 ug/dL (112-346)
[2019-07-05] MEDS: PERIDEX MT SCH ×2 (09:08→22:24)
[2019-07-05 09:09] LABS: ALBUMIN 2.8 g/dL (3.5-5.0); CALCIUM 7.6 mg/dL (8.8-10.2); CREATININE 1.8 mg/dL (0.7-1.2); PHOSPHORUS 3.8 mg/dL (2.7-4.5); POTASSIUM 3.9 mmol/L (3.5-5.1)
[2019-07-05] MEDS: PEPCID PO SCH (09:09)
[2019-07-05] MEDS: ASPIRIN PO SCH (09:09)
[2019-07-05] MEDS: LOPRESSOR PO SCH ×2 (09:10→22:24)
[2019-07-05] MEDS: FERROUS SULFATE PO SCH ×2 (09:10→22:24)
[2019-07-05] MEDS: LEVEMIR SUBQ SCH ×2 (09:11→22:25)
[2019-07-05] MEDS: COLACE PO SCH ×2 (09:11→22:24)
[2019-07-05 09:23] LABS: FERRITIN 545 ng/mL (30-400)
--- NOTE | 2019-07-05 10:03 | Diag Imaging Result Doc PS360 ---
EXAM: ABDOMEN FLAT/UPRIGHT INDICATION: ileus TECHNIQUE: 2 views COMPARISON: None. FINDINGS: There is moderate gaseous distention of the colon and slightly milder distention of the several loops of small bowel. This is nonspecific. Consider ileus versus partial obstruction. No large volume free abdominal gas is identified as imaged. There is extensive degenerative arthropathy throughout the spine. IMPRESSION: Nonspecific gaseous distention of bowel as described. Electronically signed by Tk Gutierrez 07/05/2019 10:00 AM
[2019-07-05] MEDS: DULCOLAX PR SCH ×2 (11:03→22:31)
[2019-07-05] MEDS: CUBICIN 600 MG in NS 100 ML IV SCH (11:04)
--- NOTE | 2019-07-05 11:48 | ORTHOPAEDICS PROGRESS NOTE ---
DATE: 07/05/2019 SUBJECTIVE DATA: Mr. Solis is seen postoperative his right femoral neck fracture with a right anterior total hip replacement. He reports he has had some gaseous type pains in his abdomen at this time. He reports his hip pain is a 4/10. He states that he was having trouble urinating, so they put the Whyte catheter back in. He reported that he had some nausea yesterday, but none today. OBJECTIVE DATA: There is good sensation to his right lower extremity. There are good pedal pulses. The drain is still intact at this time with roughly 50 mL bloody drainage. There is negative Homans sign. There is good capillary refill in the toes. He can also flex his quadriceps muscles without difficulty. The patient's blood pressure has improved today to 121/50. His heart rate is still elevated at 122. LABORATORY DATA: Current hemoglobin and hematocrit are 7.9 and 24.1. ASSESSMENT: 1. Acute blood loss anemia. 2. Right femoral neck fracture with right anterior total hip replacement. 3. Urinary retention. PLAN: We plan to keep the Whyte in at this time. We will allow Nephrology to decide when he wants to remove the Whyte catheter. We will go ahead and remove his drain today. The patient is a Jew and does not want to take blood products. We will continue his iron. We will check back on him tomorrow and see how he is doing. Dictated by HOME Lal for Tk Rodriguez MD cc: HOME Lal MD
[2019-07-05] MEDS: NS 1,000 ML IV SCH ×3 (11:51→18:26)
--- NOTE | 2019-07-05 13:50 | PROVIDER PROGRESS NOTE ---
Progress Note Subjective: He voices feeling better. He denies any uremic complaints. Objective: Temperature 98.5, pulse 122, respirations 22, blood pressure 121/58, 02 sat 94% on 2 L nasal cannula. General: elderly white male lying in bed in no acute distress. HEENT: normocephalic, atraumatic. Pupils equal and reactive. Mucous membranes moist. Trachea midline. Skin: warm and dry. Multiple bruises. Bandage in place to surgical incision site at the right hip. Neck: supple, JVD observed. Cardiovascular: S1S2, Tachycardic rate and rhythm. No murmurs or gallops noted. Respiratory: clear lung sounds anteriorly with equal air excursion. Abdomen: soft, nontender, nondistended. Active bowel sounds noted. : Whyte in place with clear urine. Extremities. BLE non-pitting edema. R>L. Neurological: Alert and oriented to person, time, and place. Labs: WBC 5.96, hemoglobin 7.9, one, count 111, sodium 134, potassium 3.9, chloride 100, carbon dioxide 23, BUN 41, creatinine 1.8, albumin 2.8, intake 3549, output 1554. Impression: Acute kidney injury. Likely ischemic acute tubular necrosis secondary to hypertension. His creatinine and BUN are trending down. He has adequate urine output. No indications for urgent Renal replacement therapy. We will continue to monitor. Blood pressure. In target. Tachycardia. Likely rebound tachycardia from his metoprolol being held. We will start this back at 25mg BID. Anemia. Low, but stable. Does not meet transfusion criteria. iron studies complete. Folic acid ordered. Electrolytes and acid base balance. Stable. Nutrition. Adequate. Ambulation. Deferred to surgery.
--- NOTE | 2019-07-05 15:16 | Diag Imaging Result Doc PS360 ---
CT ABD/PELVIS W/ORAL CONT ONLY - 07/05/2019 INDICATION: obstruction COMPARISON: X-rays from earlier today FINDINGS: There is some linear atelectasis in the lung bases. No infiltrates. Heart size is normal with no pericardial effusion. There is a large gallstone in the gallbladder. This occupies nearly the entire gallbladder lumen. This stone probably measures 5.7 x 3.9 cm. There is severe diffuse constipation throughout the colon. No small bowel obstruction. No free air or free fluid. Whyte catheter in the urinary bladder. There is a right total hip prosthesis in good position. There are advanced degenerative changes of the spine. No acute or suspicious bony lesion. IMPRESSION: 1. Severe diffuse constipation. 2. Large gallstone in the gallbladder. This exam was performed using automated exposure control, adjustment of mA or kV according to patient size, and/or use of iterative reconstruction technique Electronically signed by Conor Faith 07/05/2019 3:14 PM
[2019-07-05] MEDS: LACTULOSE PO SCH ×2 (17:30→22:47)
[2019-07-05] MEDS ORDERED: VITAMIN D PO SCH (18:00)
--- NOTE | 2019-07-05 18:35 | PROGRESS NOTE ---
DATE: 07/05/2019 SUBJECTIVE: The patient is resting comfortably in bed. He states that he feels much better today. He complains of a lot of gas. OBJECTIVE: Vital Signs: Temperature 98.2 degrees, blood pressure 117/67, heart rate 101, respiration 21, O2 saturation 92% on room air. Intake 3.5 L, output 1.5 L. General: This is a morbidly obese male lying in bed in no acute distress. Heart: S1, S2 normal. Tachycardic. Lungs: Clear to auscultation bilaterally. No wheezing. No rales. No rhonchi. Abdomen: Distended, hypoactive bowel sounds. Nontender. Extremities: No edema, no cyanosis. Neurologic: The patient is alert and oriented x3. LABS: White blood cell count 5.9, hemoglobin 7.9, hematocrit 24, platelets 111,000. Sodium 134, potassium 3.9, chloride 100, CO2 23, BUN 41, creatinine 1.8, glucose 163, calcium 7.6, iron 30, folate 6.1, vitamin D 22. ASSESSMENT AND PLAN: 1. Status post right anterior total hip replacement, status post femoral neck fracture. Management as per the orthopedic surgeon. 2. Urinary tract infections secondary to Staphylococcus epidermidis. I discussed the culture results with Dr. Frost who recommended daptomycin IV every 48 hours for a total of 2 weeks. We will monitor the patient's creatinine, CK and CBC closely. 3. Acute kidney injury. Slowly improving. Continue with IV fluids. Management as per the cutter inspector. 4. Uncontrolled insulin-dependent diabetes mellitus. Continue on Levemir twice a day plus sliding scale insulin. 5. Morbid obesity. Aware. 6. Constipation. We will add laxative therapy. 7. Thrombocytopenia. Improved. 8. Tachycardia. The patient's Lopressor has been restarted. 9. Disposition. Once the patient is medically stable, he will be discharged to rehab. cc: Martina Senior MD [facility]ITAL[facility]
[2019-07-06] MEDS: NS 1,000 ML IV SCH (03:58)
[2019-07-06] MEDS: TYLENOL PO SCH ×4 (04:48→21:59)
[2019-07-06 06:39] LABS: HEMATOCRIT 22.5 % (42.0-52.0); HEMOGLOBIN 7.4 g/dL (14.0-18.0)
[2019-07-06 07:05] LABS: ALBUMIN 2.8 g/dL (3.5-5.0); CALCIUM 7.9 mg/dL (8.8-10.2); CREATININE 1.4 mg/dL (0.7-1.2); PHOSPHORUS 2.8 mg/dL (2.7-4.5); POTASSIUM 4.4 mmol/L (3.5-5.1)
--- NOTE | 2019-07-06 07:39 | Diag Imaging Result Doc PS360 ---
EXAM: FLAT/UPRIGHT ABD/1 VIEW CHEST HISTORY: constipation/dyspnea TECHNIQUE: Three views COMPARISON: 07/05/2019 FINDINGS: Poor inspiratory effort. No cardiomegaly. There is basilar atelectasis. No consolidation. Prominent stool in the proximal colon. Mild air distended loops of small bowel. No organomegaly. Mild scoliosis with prominent degenerative spine changes. IMPRESSION: Persistent constipation Electronically signed by Martin Jauregui 07/06/2019 7:37 AM
[2019-07-06] MEDS: HUMULIN R SUBQ SCH ×4 (07:44→22:00)
[2019-07-06] MEDS: COLACE PO SCH ×2 (09:57→21:58)
[2019-07-06] MEDS: FERROUS SULFATE PO SCH ×2 (09:57→21:58)
[2019-07-06] MEDS: PEPCID PO SCH (09:57)
[2019-07-06] MEDS: ASPIRIN PO SCH (09:57)
[2019-07-06] MEDS: LACTULOSE PO SCH ×3 (09:58→23:40)
[2019-07-06] MEDS: LOPRESSOR PO SCH ×2 (09:59→21:59)
[2019-07-06] MEDS: FOLIC ACID PO SCH (10:00)
[2019-07-06] MEDS: DULCOLAX PR SCH ×2 (10:00→22:00)
[2019-07-06] MEDS: PERIDEX MT SCH ×2 (10:01→21:58)
[2019-07-06] MEDS: LEVEMIR SUBQ SCH ×2 (11:22→21:59)
--- NOTE | 2019-07-06 15:07 | NEPHROLOGY PROGRESS NOTE ---
DATE: 07/06/2019 SUBJECTIVE: He is feeling well. No new complaints today. Anticipating rehab discharge. OBJECTIVE: Vital Signs: Blood pressure 132/73, heart rate 96, respirations 16, afebrile. General: No acute distress. Skin: Warm and dry. Neck: Neck veins are not appreciated. Cardiovascular: Heart is regular. Respiratory: Lungs are equal. No crackles. Abdomen: Benign. Extremities: No edema. IMPRESSION: Acute kidney injury. Ischemic acute tubular necrosis secondary to intraoperative hypotension most likely. Resolved. We will sign off, but if we can be of further assistance, please do not hesitate to call us back. cc: Gene Moncada MD
--- NOTE | 2019-07-06 18:11 | PROGRESS NOTE ---
DATE: 07/06/2019 SUBJECTIVE: The patient is resting comfortably in bed. He states that he has been having regular bowel movements. He has no other complaints. OBJECTIVE: Vital Signs: Temperature 97.6, blood pressure 136/73, heart rate 101, respirations 19, O2 saturation 95% on room air. Intake 2.8 L, output 3.4 L. General: This is a chronically- ill-appearing elderly male lying in bed in no acute distress. Heart: S1, S2 normal, tachycardic. Lungs: Clear to auscultation bilaterally. Abdomen: Positive bowel sounds. Soft, nontender, nondistended. Extremities: No edema, no cyanosis. Neurologic: The patient is alert and oriented x3. LABS: Hemoglobin 7.4, hematocrit 22. Sodium 138, potassium 4.4, chloride 104. CO2 is 22, BUN 35, creatinine 1.4, glucose 166. Abdominal x-ray shows persistent constipation. ASSESSMENT AND PLAN: 1. Status post right anterior total hip replacement status post femoral neck fracture. Stable. Orthopaedic Surgery is following. 2. Urinary tract infection secondary to Staphylococcus epidermidis. Continue on daptomycin every 48 hours. We will plan to do a repeat urinalysis tomorrow. 3. Acute kidney injury. Improved. The patient is now off of IV fluids. Continue to monitor. 4. Uncontrolled insulin-dependent diabetes mellitus. Improved. Continue on Levemir twice a day plus sliding-scale insulin. 5. Constipation. Continue the laxative regimen as ordered. 6. Morbid obesity. Aware. 7. Thrombocytopenia. Stable. 8. Hypertension. Continue on Lopressor. 9. Disposition. The patient will likely be ready for discharge to inpatient rehab on Tuesday. cc: Martina Senior MD MTDD
[2019-07-07] MEDS: TYLENOL PO SCH ×2 (05:32→12:32)
[2019-07-07] MEDS: HUMULIN R SUBQ SCH ×4 (07:01→21:43)
[2019-07-07 07:04] LABS: HEMOGLOBIN 7.6 g/dL (14.0-18.0); MCH 27.7 PG (27-31); MCHC 31.7 g/dL (33-37); MCV 87.6 FL (81-99); RBC 2.74 XMIL (4.7-6.1); RDW 13.6 % (11.5-14.5); WBC 6.69 X1000 (4.8-10.8)
[2019-07-07 07:24] LABS: ALBUMIN 2.6 g/dL (3.5-5.0); CALCIUM 8.1 mg/dL (8.8-10.2); CREATININE 1.4 mg/dL (0.7-1.2); PHOSPHORUS 2.7 mg/dL (2.7-4.5); POTASSIUM 4.1 mmol/L (3.5-5.1)
[2019-07-07] MEDS: CUBICIN 600 MG in NS 100 ML IV SCH (08:10)
[2019-07-07] MEDS: LACTULOSE PO SCH (08:10)
[2019-07-07] MEDS: PEPCID PO SCH (08:12)
[2019-07-07] MEDS: PERIDEX MT SCH ×2 (08:12→21:35)
[2019-07-07] MEDS: ASPIRIN PO SCH (08:13)
[2019-07-07] MEDS: FOLIC ACID PO SCH (08:13)
[2019-07-07] MEDS: FERROUS SULFATE PO SCH ×2 (08:13→21:35)
[2019-07-07] MEDS: LOPRESSOR PO SCH ×2 (08:13→21:35)
[2019-07-07] MEDS: COLACE PO SCH ×2 (08:13→21:35)
[2019-07-07] MEDS: LEVEMIR SUBQ SCH ×2 (08:14→21:35)
[2019-07-07] MEDS: DULCOLAX PR SCH ×2 (08:21→21:36)
--- NOTE | 2019-07-07 15:48 | PROGRESS NOTE ---
DATE: 07/07/2019 SUBJECTIVE: The patient is sitting at the edge of the bed. He is getting ready to work with physical therapy. He states that he has been having regular bowel movements. OBJECTIVE: Vital Signs: Temperature 97.5 degrees, blood pressure 121/72, heart rate 95, respirations 16, O2 saturation 96% on room air. Intake 380, output 3.2 L. General: This is a chronically ill-appearing elderly male sitting at the edge of the bed in no acute distress. Heart: S1, S2 normal. Tachycardic. Lungs: Clear to auscultation bilaterally. No wheezing. No rales. No rhonchi. Abdomen: Positive bowel sounds. Soft, nontender, nondistended. Extremities: No edema. No cyanosis. Neurologic: The patient is alert and oriented x3. LABS: White blood cell count 6.6, hemoglobin 7.6, hematocrit 24, platelets 187,000. Sodium 138, potassium 4.1, glucose 185, creatinine 1.4, BUN 30. ASSESSMENT AND PLAN: 1. Status post right anterior total hip replacement, status post femoral neck fracture. Stable. 2. Urinary tract infection secondary to Staphylococcus epidermidis. The patient is currently on daptomycin. Repeat urinalysis has been ordered. 3. Acute kidney injury. Stable. Continue to monitor closely off of IV fluids. 4. Insulin-dependent diabetes mellitus. Continue on Levemir and sliding scale insulin. 5. Constipation. Slowly improving. Continue with the current laxative regimen. 6. Morbid obesity. Aware. 7. Iron deficiency anemia. Continue with iron replacement. 8. Hypertension. Continue on Lopressor. 9. Disposition. We will plan to discharge the patient to rehab on Tuesday. cc: Martina Senior MD
--- NOTE | 2019-07-07 16:59 | Diag Imaging Result Doc PS360 ---
EXAM: ABDOMEN FLAT/UPRIGHT HISTORY: constipation TECHNIQUE: Three views COMPARISON: 07/06/2019 FINDINGS: Prominent stool throughout the colon. No bowel obstruction. No organomegaly. Prominent degenerative spine changes. Orthopedic replacement of the right hip. IMPRESSION: Prominent constipation Electronically signed by Martin Jauregui 07/07/2019 4:57 PM
[2019-07-07] MEDS: MIRALAX PO SCH (21:37)
[2019-07-07 21:46] LABS: URINE SOURCE CLEAN CATCH
[2019-07-07 21:51] LABS: BILIRUBIN URINE NEGATIVE (NEGATIVE); BLOOD URINE NEGATIVE (NEGATIVE); COLOR YELLOW; GLUCOSE URINE NEGATIVE (NEGATIVE); KETONE URINE NEGATIVE (NEGATIVE); LEUKOCYTES URINE SMALL (NEGATIVE); NITRITE URINE NEGATIVE (NEGATIVE); PROTEIN URINE TRACE mg/dL (NEGATIVE); SP GRAVITY URINE 1.019; TURBIDITY URINE CLEAR (CLEAR); UROBILINOGEN URINE NORMAL (NORMAL)
[2019-07-07 21:53] LABS: UR EPITHELIAL CELLS <10 /HPF (<10); URINE BACTERIA NEGATIVE /HPF; URINE RBC <10 /HPF (<10); URINE WBC <10 /HPF (<10)
[2019-07-08] MEDS: HUMULIN R SUBQ SCH ×4 (06:37→22:11)
[2019-07-08 07:14] LABS: HEMOGLOBIN 7.7 g/dL (14.0-18.0); MCH 28.2 PG (27-31); MCHC 32.1 g/dL (33-37); MCV 87.9 FL (81-99); MPV 9.9 FL (7.4-10.4); RBC 2.73 XMIL (4.7-6.1); RDW 13.9 % (11.5-14.5); WBC 6.96 X1000 (4.8-10.8)
[2019-07-08 08:01] LABS: CALCIUM 8.2 mg/dL (8.8-10.2); CREATININE 1.2 mg/dL (0.7-1.2); POTASSIUM 3.8 mmol/L (3.5-5.1)
[2019-07-08] MEDS: PEPCID PO SCH (08:52)
[2019-07-08] MEDS: FERROUS SULFATE PO SCH ×2 (08:52→22:11)
[2019-07-08] MEDS: ASPIRIN PO SCH (08:52)
[2019-07-08] MEDS: PERIDEX MT SCH ×2 (08:52→22:11)
[2019-07-08] MEDS: FOLIC ACID PO SCH (08:52)
[2019-07-08] MEDS: LOPRESSOR PO SCH ×2 (08:52→22:11)
[2019-07-08] MEDS: COLACE PO SCH (08:53)
[2019-07-08] MEDS: MIRALAX PO SCH (08:54)
[2019-07-08] MEDS: DULCOLAX PR SCH (08:54)
[2019-07-08] MEDS: LEVEMIR SUBQ SCH ×2 (08:57→22:11)
--- NOTE | 2019-07-08 14:37 | EKG Report ---
Test Performed on : 07/08/2019 2:05:29 PM Test Reason : tachycardia Blood Pressure : / mmHG Vent. Rate : 095 BPM Atrial Rate : 095 BPM P-R Int : 184 ms QRS Dur : 128 ms QT Int : 374 ms P-R-T Axes : 061 -07 026 degrees QTc Int : 469 ms Normal sinus rhythm. Nonspecific intraventricular block Abnormal ECG When compared with ECG of 05-JUL-2019 07:01, Sinus rhythm. has replaced Wide QRS rhythm. Confirmed by Love Hernandez MD ([id number]) on 07/09/2019 5:30:08 PM
--- NOTE | 2019-07-08 17:57 | PROGRESS NOTE ---
DATE: 07/08/2019 SUBJECTIVE: The patient is resting comfortably in bed. He states that he has had several bowel movements. OBJECTIVE: Vital Signs: Temperature 98.5 degrees, blood pressure 135/75, heart rate 95, respirations 20, O2 saturations 100% on room air. General: This is a elderly male lying in bed in no acute distress. Heart: S1, S2 normal. Tachycardic. Lungs: Equal air entry bilaterally. No wheezing. No rales. Abdomen: Positive bowel sounds. Soft, nontender, nondistended. Extremities: No edema. No cyanosis. Neurologic: The patient is alert and oriented x3. LABORATORY DATA: White blood cell count 6.9, hemoglobin 7.7, hematocrit 24, platelets 239,000. Sodium 137, potassium 3.8, chloride 104, CO2 22, BUN 25, creatinine 1.2, glucose 159. UA, trace protein, negative for bacteria. Urine culture no growth. ASSESSMENT AND PLAN: 1. Status post right anterior total hip replacement, status post femoral neck fracture. Stable. The patient is stable for discharge to inpatient rehab. 2. Urinary tract infection secondary to Staphylococcus epidermidis. Resolved. The repeat urine culture shows no growth. We will discontinue antibiotic therapy. 3. Acute kidney injury. Improved. 4. Insulin-dependent diabetes mellitus. Continue on Levemir. 5. Constipation. Resolved. 6. Morbid obesity. Aware. 7. Iron deficiency anemia. Continue on iron replacement. 8. Hypertension. Continue on Lopressor. 9. Disposition. The patient will be discharged to rehab tomorrow. cc: Martina Senior MD MTDD
--- NOTE | 2019-07-09 08:04 | DISCHARGE SUMMARY ---
ADMISSION DATE: 06/30/2019 DISCHARGE DATE: FINAL DISCHARGE DIAGNOSES: 1. Status post right anterior total hip replacement secondary to femoral neck fracture. 2. Urinary tract infection secondary to Staphylococcus epidermidis. 3. Acute kidney injury. 4. Insulin-dependent diabetes mellitus. 5. Constipation. 6. Morbid obesity. 7. Hypertension. 8. Iron deficiency anemia. CONSULTATIONS: 1. Orthopedic consultation with Dr. Rodriguez. 2. Nephrology consultation with Dr. Moncada. IMAGIN. Hip and pelvis x-ray performed on 06/30/2019 that revealed a right femoral neck fracture. 2. Chest x-ray performed on 06/30/2019 that revealed poor inspiration. 3. Renal ultrasound performed on 07/04/2019, which revealed no evidence of obstructive uropathy. 4. CT of the abdomen and pelvis performed on 07/05/2019, which revealed diffuse constipation and a large gallstone in the gallbladder. 5. Abdominal x-ray was performed on 07/07/2019, which revealed constipation. PROCEDURE: Right anterior total hip replacement performed on 07/03/2019. HOSPITAL COURSE: Mr. Solis is an 83-year-old male with a history of hypertension, constipation, and anemia who presented to the ER after suffering a fall at home. In the ER, an x-ray of the hip and pelvis was done that revealed a right femoral neck fracture. The patient was admitted to the hospitalist service and Orthopedic Surgery was consulted. The patient was noted to have mild renal dysfunction on admission with a creatinine of 1.3. The patient was noted to have urinary tract infection and was started on antibiotic therapy. On 07/03/2019, the patient was taken to the OR and underwent a right anterior total hip replacement. The patient did well postoperatively. However, on 07/04/2019, the patient's creatinine went up from 1.2 to 2.4. IV fluids were initiated and Nephrology was consulted. After examining the urine studies, it was thought that the patient was dehydrated. The patient was treated with IV fluids with resolution of the renal failure. For the urinary tract infection, the urine culture grew out Staphylococcus epidermidis. The sensitivities were reviewed. The patient was placed on daptomycin every 48 hours. The patient was treated, and a repeat urinalysis and urine culture were performed that revealed resolution of the urinary tract infection. Also, the patient was started on a bowel regimen to resolve the constipation. The patient was noted to be iron deficient during this hospitalization, and was started on iron supplementation. At this time, the patient is medically stable for discharge to inpatient rehab. DISCHARGE MEDICATIONS: 1. Ferrous sulfate 325 mg oral twice a day. 2. Folic Acid 1 mg oral daily. 3. Vitamin D2 50,000 units oral every . 4. Lopressor 25 mg oral every 12 hours. 5. Levemir 15 units subcutaneous twice a day. 6. Rougon 5/325 one tab oral every 6 hours p.r.n. for pain. 7. MiraLAX 17 g oral daily p.r.n. for constipation. 8. Simvastatin 20 mg oral daily. 9. Glucophage 500 mg oral 3 times a day. DISCHARGE DIET: 1800 ADA diet. ACTIVITY: As tolerated. FOLLOWUP INSTRUCTIONS: The patient will need to follow up with Dr. Rodriguez in 1 week. The patient will need to follow up with Dr. Armenta in 2 weeks. cc: MD Ania Lyles MD
[2019-07-09 08:07] VITALS: BP 143/70
[2019-07-09] MEDS: HUMULIN R SUBQ SCH ×2 (08:23→11:25)
[2019-07-09] MEDS: LOPRESSOR PO SCH (08:24)
[2019-07-09] MEDS: NORCO-5 PO PRN (08:24)
[2019-07-09] MEDS: PERIDEX MT SCH (08:25)
[2019-07-09] MEDS: ASPIRIN PO SCH (08:25)
[2019-07-09] MEDS: FERROUS SULFATE PO SCH (08:25)
[2019-07-09] MEDS: FOLIC ACID PO SCH (08:25)
[2019-07-09] MEDS: PEPCID PO SCH (08:25)
[2019-07-09] MEDS ORDERED: INSULIN PEN NEEDLES ONE (08:54)
[2019-07-09] MEDS: LEVEMIR SUBQ SCH (10:55)
== END 2019-07-09 12:49 | DRG 470 ==
LOC: ED 20:43 → SUATTDRO 23:30 → 4N 23:30
PROVIDERS: ATTEND Internal Medicine